=== PATIENT | female | born 1985 | race Caucasian/White ===

== ENCOUNTER 2018-08-02 12:24 | Emergency (ER) | payer OTHER, SELFPAY ==
[2018-08-02 12:25] VITALS: BP 124/79; PULSE 91; RESP 18; TEMP 36.6; O2SAT 99; BMI 39.1
[2018-08-02 13:42] VITALS: BP 140/82; PULSE 85; RESP 14; O2SAT 96
--- NOTE | 2018-08-02 15:38 | ED.VISSUMM ---
- ER Visit Summary Date of Service: 08/02/18 Chief Complaint: [Redness and swelling right great toe] History of Present Illness: The patient is a 32 F [presents to the emergency department complaint redness and swelling to her great toe that she has had for about 2 weeks. Patient denies any fever. Complains of pain with walking. She has not had an issue like this before.] Physical Examination: [Right foot-patient has ingrown toenail to the right great toe that is bilateral. Foul odor noted from toe. No lymphangitic streaking noted. Patient has pain on palpation of the great toe.] Test Results: [X-ray of the right great toe showed no evidence for osteomyelitis only soft tissue swelling] Emergency Department Course and Treatment: [I recommended removing the toenail and trimming the edges which the patient agreed. Patient had a digital block performed using 1% lidocaine total of 6 cc. Toe was sterilely draped and prepped. Curved hemostats were used to undermine the nail and lifted off the nail bed. I then was able to easily remove the nail. I trimmed both lateral edges and then replaced the nail underneath the nail fold and sutured in the place.] Treatment Plan: [Patient will be referred to podiatry on-call. She will be given a prescription for [place] for pain. I will attempt to contact podiatry for follow-up.] Disposition: [Discharged home in stable condition] Impression: [Ingrown right great toenail-removed] This note was generated with [employer] dictation software. It may contain incorrect words, spelling, and punctuation that were not noted in review of the chart prior to signing ED Disposition - Plan for ED Patient: Chief Complaint: Wound Check Referrals: Care Physician,No Primary [Primary Care Provider] -
--- NOTE | 2018-08-02 15:41 | ED.DEP ---
ED Disposition - Plan for ED Patient: Chief Complaint: Wound Check Instructions: ED Ingrown Toenail Excised Prescriptions: Hydrocodone/Acetaminophen [[place]ason 5-325 Tablet] 1 - 2 ea PO 4X/DAY PRN PRN 3 Days #12 tab PRN Reason: Pain Referrals: Care Physician,No Primary [Primary Care Provider] - Belén Chan DPM [STAFF PHYSICIAN] - 5-7 Days
[2018-08-02 15:58] VITALS: BP 138/76; PULSE 78; RESP 14
== END 2018-08-02 16:04 | disposition home or self-care (01) ==
LOC: ED 14:59
PROVIDERS: Emergency Provider Emergency Medicine
DX: L60.0 Ingrowing nail (principal)
CPT/HCPCS: 11750; 73660; 99283